=== PATIENT | male | born 1950 | race Hispanic/Latino ===

== ENCOUNTER 2017-08-04 10:21 | Outpatient (RCR) | payer OTHER ==
[~2017-08-04 10:21] MED LIST: ACETAMINOPHEN PO; CEPHALEXIN500 MG PO
== END 2017-08-21 ==
LOC: OT 10:21
PROVIDERS: ATTEND Plastic Surgery
DX: S67.193A Crushing injury of left middle finger, initial encounter (principal)
CPT/HCPCS: 97010 ×2; 97110 ×2; 97139; G8987; G8988

== ENCOUNTER 2017-09-22 15:01 | Outpatient (RCR) | payer OTHER | END 2017-10-19 | LOC: OT 15:01 | PROVIDERS: ATTEND Plastic Surgery | DX: S67.193A Crushing injury of left middle finger, initial encounter (principal) | CPT/HCPCS: 97139 ==